=== PATIENT | male | born 1970 | race Caucasian/White ===

== ENCOUNTER 2018-03-11 04:49 | Emergency (ER) | payer OTHER ==
[~2018-03-11] VITALS: Ht 167.6 cm; Wt 78.9 kg
[2018-03-11 04:57] VITALS: Ht 167.6 cm; Wt 78.9 kg
[2018-03-11 06:06] VITALS: BP 134/91
== END 2018-03-11 06:06 | disposition home or self-care (01) ==
LOC: ED 04:49
DX: L03.116 Cellulitis of left lower limb (principal); E78.00 Pure hypercholesterolemia, unspecified
CPT/HCPCS: J0696; J2001

== ENCOUNTER 2018-03-14 17:14 | Emergency (ER) | payer OTHER ==
[~2018-03-14] VITALS: Ht 167.6 cm; Wt 82.5 kg
[2018-03-14 19:17] VITALS: BP 130/96
== END 2018-03-14 19:17 | disposition home or self-care (01) ==
LOC: ED 17:14
DX: L03.116 Cellulitis of left lower limb (principal); E78.00 Pure hypercholesterolemia, unspecified
CPT/HCPCS: J0696; J2001